=== PATIENT | female | born 1980 | race Caucasian/White ===

== ENCOUNTER → 2016-09-21 | Day surgery (SDC) | payer BC ==
[~2016-09-21] MED LIST: BUPIVACAINE HCL PF 0.75% 30 ML VIAL ONE; HYDR-3288 PO; KETOROLAC TROMETHAMINE 30 MG/ML (IVP) VIAL IV PUSH ONE; LITH450T PO; MIDAZOLAM HCL 2 MG/2 ML VIAL IV ONE; MORP1TAB25 PO; PROPOFOL 200 MG/20 ML AMP IV ONE; QUET150XR PO; SOMA350T PO; TOPA50TA7 PO; TRIAMCINOLONE ACETONIDE 40 MG/ML VIAL I-ARTICULR ONE; VENL75TA2 PO
--- NOTE | 2016-09-29 12:36 | M6 ---
cc: LADY BONILLA M.D. DATE 09/21/2016 DATE OF 1980 PROCEDURE Fluoroscopically guided injection bilateral lumbar facet joints (bilateral L3-4, L4-5 and L5-S1 facet joints. PROCEDURE NOTE History and physical was completed and signed. Consent was signed. Procedure site was marked. Medications were listed and reconciled. Pain score was recorded. Allergies were noted. Time out was taken. Fluoroscopy time was recorded where applicable. Sedation was administered or directed by Dr. Bonilla. The patient was given oxygen. The patient was monitored by a registered nurse. Total procedure time was greater than 15 minutes. IV was started, blood pressure cuff, pulse oximeter and EKG were applied. The patient was placed in the prone position on a Dejuan table sedated with small amounts of propofol titrated to effect. Vital signs were monitored and remained stable throughout the procedure. The lumbar area was prepped with alcohol and 10% Betadine solution and draped with sterile drapes. Fluoroscopy was used in a Donnie dog view to clearly visualize the bilateral lumbar facet joints at L3-4, L4-5 and L5-S1. Separate sterile 3-1/2-inch 25-gauge spinal needles were advanced into these joints under fluoroscopic guidance. There was negative aspiration for blood or any other type of fluid and at each location, the patient was given 1 mL of Marcaine 0.75% which contained 10 mg of Kenalog. Following the procedure, the patient was taken to the recovery room with stable vital signs neurologically intact. She will be evaluated immediately and with followup to determine if she has a subjective decrease in her usual pain and a corresponding objective increase in her functional capabilities. W. MD MAHENDRA Begum/LEAH /9:36 AM /12:33 PM
== END | disposition home or self-care (01) ==
LOC: PHSDC 07:56
PROVIDERS: ATTEND Pain Medicine Interventional Pain Medicine
DX: M54.5 Low back pain (principal); M51.36 Other intervertebral disc degeneration, lumbar region
CPT/HCPCS: 64493; 64494; 64495; 99152; J1885; J2250; J3301